=== PATIENT | female | born 1975 | race Two or more races ===

== ENCOUNTER 2022-06-29 15:07 | Emergency (ER) | payer OTHER ==
[2022-06-29] MEDS ORDERED: Sodium Chloride 0.9% 10 ML Syringe FLUSH PRN (15:33)
[2022-06-29] MEDS ORDERED: Sodium Chloride 0.9% 1,000 ML IV ONE (15:34)
[2022-06-29 16:49] LABS: ESTIMATED GFR 91 mL/min (>60)
== END 2022-06-29 17:35 | disposition home or self-care (01) ==
LOC: JD.ED 15:07
DX: N93.9 Abnormal uterine and vaginal bleeding, unspecified (principal); I10 Essential (primary) hypertension
CPT/HCPCS: 36415; 80053; 84702; 85025; 86850; 86900; 86901; 96360; 99284; J3490; J7030; 99283